=== PATIENT | male | born 1975 | race Caucasian/White ===

== ENCOUNTER 2024-11-25 10:03 | Emergency (ER) | payer OTHER ==
[2024-11-25 10:15] VITALS: RESP 18; TEMP 98.2; BMI 33.5
[2024-11-25 11:16] VITALS: BP 189/93; PULSE 83
== END 2024-11-25 11:08 | disposition home or self-care (01) ==
LOC: JER 10:03
DX: F10.10 Alcohol abuse, uncomplicated (principal)
CPT/HCPCS: 99283-25